=== PATIENT | female | born 1950 | race Caucasian/White ===

== ENCOUNTER 2021-08-06 15:40 | Inpatient (IN) | payer MEDICARE, MEDICAID ==
[~2021-08-06] VITALS: Ht 149.9 cm; Wt 72.3 kg
[2021-08-06 19:24] LABS: BASOPHILS % (AUTO) 0.4 % (0.0-2.0); EOSINOPHILS % (AUTO) 0.7 % (1.0-6.0); HEMATOCRIT 29.9 % (36-46); HEMOGLOBIN 9.6 g/dL (12.0-16.0); LYMPHOCYTES # (AUTO) 1.7 K/uL (1.0-4.8); MEAN CORPUSCULAR HEMOGLOBIN 26.5 pg (26.0-34.0); MEAN CORPUSCULAR HGB CONC 32.1 G/dL (31.0-37.0); MEAN CORPUSCULAR VOLUME 83 fL (80-100); MONOCYTES % (AUTO) 8.3 % (2.0-9.0); NEUTROPHILS # (AUTO) 9.4 K/uL (1.8-7.7); NEUTROPHILS % (AUTO) 76.6 % (40.0-70.0); PLATELET COUNT (AUTO) 294 K/uL (150-450); RED BLOOD CELL COUNT(AUTO) 3.63 MIL/uL (4.00-5.20); RED CELL DISTRIBUTION WIDTH 14.9 % (11.5-14.5)
[2021-08-06 19:38] LABS: ANION GAP 7 mmol/L (8-16); CALCIUM, TOTAL 9.1 mg/dL (8.8-10.5); CARBON DIOXIDE 30 mmol/L (22-29); CHLORIDE 100 mmol/L (98-107); CREATININE 1.94 mg/dL (0.60-1.30); GLOMERULAR FILTR. RATE CALC 25 mL/min (>60); GLUCOSE,RANDOM 122 mg/dL (70-110); SODIUM SERUM 137 mmol/L (136-145); UREA NITROGEN, BLOOD 26 mg/dL (7-18)
[2021-08-06 19:42] LABS: ALANINE AMINOTRANSFERASE 36 U/L (12-78); ALBUMIN 3.2 g/dL (3.4-5.0); ALKALINE PHOSPHATASE 92 U/L (46-116); ASPARTATE AMINOTRANSFERASE 50 U/L (15-37); BILIRUBIN,TOTAL 0.3 mg/dL (0.1-1.0); TOTAL PROTEIN, SERUM 7.9 g/dL (6.4-8.2)
[2021-08-06] MEDS ORDERED: ONDANSETRON HCL 4 MG/2 ML VIAL IVP PRN ×2 (20:45)
[2021-08-06] MEDS ORDERED: SODIUM CHLORIDE 0.9% 1,000 ML IV ONE (20:45)
[2021-08-06] MEDS ORDERED: LORazepam 2 MG/ML VIAL IM ONE (20:45)
[2021-08-06] MEDS ORDERED: 0.9% SODIUM CHLORIDE 10 ML SYRINGE IVP PRN (20:45)
[2021-08-06 21:27] LABS: COVID AG,FIA SOURCE NASOPHARYNGEAL
[2021-08-06 21:33] LABS: RETICULOCYTE % (AUTO) 0.9 % (0.5-2.3)
[2021-08-06 21:41] LABS: THYROID STIMULATING HORMONE 1.85 uIU/mL (0.36-3.74)
[2021-08-06 22:12] LABS: % IRON SATURATION 4.8 % (22-44); IRON, SERUM 14 mcg/dL (50-175); TOTAL IRON BINDING CAPACITY 289 mcg/dL (250-450)
[2021-08-06 22:40] LABS: APPEARANCE,URINE CLEAR (CLEAR); BILIRUBIN,URINE NEGATIVE (NEGATIVE); GLUCOSE, URINE (UA) NEGATIVE (NEGATIVE); KETONES,URINE NEGATIVE (NEGATIVE); LEUKOCYTE ESTERASE ,URINE NEGATIVE (NEGATIVE); NITRATE,URINE NEGATIVE (NEGATIVE); OCCULT BLOOD,URINE NEGATIVE (NEGATIVE); PH,URINE 5.5 (5.0-8.0); PROTEIN,URINE SEE CONFIRM (NEGATIVE); UROBILINOGEN,URINE 0.2 mg/dL (<=1.0)
[2021-08-06 22:58] LABS: AMPHET/METH SCREEN,URINE NEGATIVE (NEGATIVE); BARBITURATE SCREEN, URINE NEGATIVE (NEGATIVE); BENZODIAZEPINES SCREEN,URINE NEGATIVE (NEGATIVE); CANNABINOID SCREEN,URINE NEGATIVE (NEGATIVE); COCAINE SCREEN,URINE NEGATIVE (NEGATIVE); METHADONE SCREEN, URINE NEGATIVE (NEGATIVE); OPIATE SCREEN,URINE NEGATIVE (NEGATIVE); PHENCYCLIDINE SCREEN,URINE NEGATIVE (NEGATIVE)
[2021-08-06 23:06] LABS: AMORPHOUS SEDIMENT,UR Moderate /LPF (None Seen); BACTERIA,URINE Few /HPF (None Seen); RBC,URINE None Seen /HPF (0-2); WBC,URINE None Seen /HPF (0-5)
[2021-08-06 23:07] LABS: SULFOSALICYLIC ACID,URINE 1+ (Negative)
[2021-08-06 23:11] LABS: CREATININE,URINE RANDOM 102.8 mg/dL (30.0-125.0)
[2021-08-06 23:14] VITALS: BP 141/69
[2021-08-06] MEDS: SODIUM CHLORIDE 0.9% 1,000 ML IV SCH (23:17)
[2021-08-07 07:24] LABS: BASOPHILS % (AUTO) 0.8 % (0.0-2.0); EOSINOPHILS % (AUTO) 2.7 % (1.0-6.0); HEMATOCRIT 30.5 % (36-46); HEMOGLOBIN 9.9 g/dL (12.0-16.0); LYMPHOCYTES # (AUTO) 1.5 K/uL (1.0-4.8); LYMPHOCYTES % (AUTO) 16.3 % (22.0-44.0); MEAN CORPUSCULAR HEMOGLOBIN 27.1 pg (26.0-34.0); MEAN CORPUSCULAR HGB CONC 32.6 G/dL (31.0-37.0); MEAN CORPUSCULAR VOLUME 83 fL (80-100); MONOCYTES # (AUTO) 0.7 K/uL (0.1-1.0); MONOCYTES % (AUTO) 7.4 % (2.0-9.0); NEUTROPHILS # (AUTO) 6.8 K/uL (1.8-7.7); NEUTROPHILS % (AUTO) 72.8 % (40.0-70.0); PLATELET COUNT (AUTO) 257 K/uL (150-450); RED BLOOD CELL COUNT(AUTO) 3.66 MIL/uL (4.00-5.20); RED CELL DISTRIBUTION WIDTH 15.2 % (11.5-14.5)
[2021-08-07 07:36] LABS: CREATININE 1.3 mg/dL (0.60-1.30); POTASSIUM 3.9 mmol/L (3.5-5.1)
[2021-08-07] MEDS: SODIUM CHLORIDE 0.9% 1,000 ML IV SCH (08:03)
[2021-08-07 08:11] VITALS: BP 138/66
[2021-08-07] MEDS: LISINOPRIL 5 MG TABLET PO SCH (19:34)
[2021-08-07 20:30] VITALS: BP 163/73
[2021-08-07] MEDS: ACETAMINOPHEN 325 MG TABLET PO PRN (20:40)
[2021-08-08] MEDS ORDERED: MELATONIN 3 MG TABLET PO PRN (01:00)
[2021-08-08] MEDS: MELATONIN 3 MG TABLET PO PRN ×2 (01:24→23:33)
[2021-08-08 04:30] VITALS: BP 140/64
[2021-08-08 06:29] LABS: BASOPHILS % (AUTO) 0.5 % (0.0-2.0); EOSINOPHILS % (AUTO) 1.6 % (1.0-6.0); HEMATOCRIT 30.6 % (36-46); HEMOGLOBIN 9.8 g/dL (12.0-16.0); LYMPHOCYTES # (AUTO) 1.8 K/uL (1.0-4.8); LYMPHOCYTES % (AUTO) 14.5 % (22.0-44.0); MEAN CORPUSCULAR HEMOGLOBIN 26.6 pg (26.0-34.0); MEAN CORPUSCULAR VOLUME 83 fL (80-100); MONOCYTES # (AUTO) 0.8 K/uL (0.1-1.0); NEUTROPHILS # (AUTO) 9.8 K/uL (1.8-7.7); NEUTROPHILS % (AUTO) 77.4 % (40.0-70.0); PLATELET COUNT (AUTO) 275 K/uL (150-450); RED BLOOD CELL COUNT(AUTO) 3.68 MIL/uL (4.00-5.20); RED CELL DISTRIBUTION WIDTH 14.9 % (11.5-14.5)
[2021-08-08 06:40] LABS: % IRON SATURATION 6.4 % (22-44)
[2021-08-08 07:07] LABS: ALBUMIN 2.7 g/dL (3.4-5.0); BILIRUBIN,TOTAL 0.3 mg/dL (0.1-1.0); CALCIUM, TOTAL 8.8 mg/dL (8.8-10.5); CREATININE 1.08 mg/dL (0.60-1.30); POTASSIUM 4.4 mmol/L (3.5-5.1); TOTAL PROTEIN, SERUM 7.3 g/dL (6.4-8.2)
[2021-08-08 07:25] VITALS: BP 142/68
[2021-08-08] MEDS: MULTIVITAMINS WITH MINERALS, THERAPEUTIC TABLET PO SCH (08:25)
[2021-08-08] MEDS: LISINOPRIL 5 MG TABLET PO SCH (08:25)
[2021-08-08] MEDS: SOD FERRIC GLUC COMPLX/SUCROSE 125 MG in SODIUM CHLORIDE 0.9% 100 ML IV SCH (09:45)
[2021-08-08] MEDS: ACETAMINOPHEN 325 MG TABLET PO PRN (14:33)
[2021-08-08 15:13] VITALS: BP 138/70
[2021-08-08 19:30] VITALS: BP 142/60
[2021-08-09] MEDS: ACETAMINOPHEN 325 MG TABLET PO PRN ×2 (02:19→10:14)
[2021-08-09 04:35] VITALS: BP 137/60
[2021-08-09 06:34] LABS: BASOPHILS % (AUTO) 0.8 % (0.0-2.0); EOSINOPHILS % (AUTO) 3.2 % (1.0-6.0); HEMATOCRIT 28.8 % (36-46); HEMOGLOBIN 9.5 g/dL (12.0-16.0); LYMPHOCYTES # (AUTO) 1.6 K/uL (1.0-4.8); LYMPHOCYTES % (AUTO) 14.7 % (22.0-44.0); MEAN CORPUSCULAR HEMOGLOBIN 27.5 pg (26.0-34.0); MEAN CORPUSCULAR HGB CONC 33.2 G/dL (31.0-37.0); MEAN CORPUSCULAR VOLUME 83 fL (80-100); MONOCYTES # (AUTO) 0.6 K/uL (0.1-1.0); MONOCYTES % (AUTO) 5.8 % (2.0-9.0); NEUTROPHILS % (AUTO) 75.5 % (40.0-70.0); PLATELET COUNT (AUTO) 272 K/uL (150-450); RED BLOOD CELL COUNT(AUTO) 3.46 MIL/uL (4.00-5.20)
[2021-08-09 07:08] LABS: ALBUMIN 2.5 g/dL (3.4-5.0); BILIRUBIN,TOTAL 0.2 mg/dL (0.1-1.0); CALCIUM, TOTAL 8.7 mg/dL (8.8-10.5); CREATININE 1.25 mg/dL (0.60-1.30); MAGNESIUM 1.6 mg/dL (1.80-2.40); PHOSPHORUS 3.3 mg/dL (2.5-4.9); POTASSIUM 3.9 mmol/L (3.5-5.1)
[2021-08-09 08:31] VITALS: BP 152/76
[2021-08-09] MEDS: MULTIVITAMINS WITH MINERALS, THERAPEUTIC TABLET PO SCH (08:57)
[2021-08-09] MEDS: SOD FERRIC GLUC COMPLX/SUCROSE 125 MG in SODIUM CHLORIDE 0.9% 100 ML IV SCH (08:57)
[2021-08-09] MEDS: LISINOPRIL 5 MG TABLET PO SCH (08:58)
[2021-08-09] MEDS ORDERED: MAGNESIUM OXIDE 400 MG TABLET PO ONE (11:00)
[2021-08-09 15:10] VITALS: BP 119/77
== END 2021-08-09 18:00 | DRG 682 ==
LOC: EMS 15:40 → 6N 21:27
PROVIDERS: ADMIT Internal Medicine; ATTEND Internal Medicine
DX: N17.9 Acute kidney failure, unspecified (principal); G93.41 Metabolic encephalopathy; E44.0 Moderate protein-calorie malnutrition; R65.10 Systemic inflammatory response syndrome (SIRS) of non-infectious origin without acute organ dysfunction; N31.9 Neuromuscular dysfunction of bladder, unspecified; R33.9 Retention of urine, unspecified; J45.909 Unspecified asthma, uncomplicated; Z20.822 Contact with and (suspected) exposure to COVID-19; D63.1 Anemia in chronic kidney disease; E11.22 Type 2 diabetes mellitus with diabetic chronic kidney disease; I12.9 Hypertensive chronic kidney disease with stage 1 through stage 4 chronic kidney disease, or unspecified chronic kidney disease; N18.9 Chronic kidney disease, unspecified; R31.29 Other microscopic hematuria; R62.7 Adult failure to thrive; J42 Unspecified chronic bronchitis; F17.210 Nicotine dependence, cigarettes, uncomplicated; R74.8 Abnormal levels of other serum enzymes; R80.9 Proteinuria, unspecified; Z79.899 Other long term (current) drug therapy; Z88.5 Allergy status to narcotic agent; Z68.32 Body mass index [BMI] 32.0-32.9, adult; Z72.89 Other problems related to lifestyle; Z79.84 Long term (current) use of oral hypoglycemic drugs; Z90.49 Acquired absence of other specified parts of digestive tract
CPT/HCPCS: 51701; 70450; 71045; 76770; 80048; 80053; 81001; 81002; 82140; 82570; 82728; 83540; 83550; 83735; 84100; 84145; 84300; 84443; 84484; 85025; 85045; 87040; 93005; 97162; 99285; G0480; J2060; J2916; J7030; J7050; 36415-L1; 36415-TC

== ENCOUNTER 2021-08-17 11:52 | Emergency (ER) | payer MEDICARE, MEDICAID ==
[~2021-08-17] VITALS: Ht 157.5 cm; Wt 60.0 kg
[2021-08-17] MEDS ORDERED: QUET25TA PO (13:01)
[2021-08-17] MEDS ORDERED: LISI-892 PO (13:01)
[2021-08-17 13:31] LABS: BASOPHILS % (AUTO) 0.5 % (0.0-2.0); EOSINOPHILS % (AUTO) 1.4 % (1.0-6.0); HEMATOCRIT 28.8 % (36-46); HEMOGLOBIN 9.2 g/dL (12.0-16.0); LYMPHOCYTES % (AUTO) 18.7 % (22.0-44.0); MEAN CORPUSCULAR HEMOGLOBIN 26.7 pg (26.0-34.0); MEAN CORPUSCULAR VOLUME 83 fL (80-100); MONOCYTES # (AUTO) 0.5 K/uL (0.1-1.0); MONOCYTES % (AUTO) 4.6 % (2.0-9.0); NEUTROPHILS # (AUTO) 7.9 K/uL (1.8-7.7); NEUTROPHILS % (AUTO) 74.8 % (40.0-70.0); PLATELET COUNT (AUTO) 321 K/uL (150-450); RED BLOOD CELL COUNT(AUTO) 3.46 MIL/uL (4.00-5.20)
[2021-08-17 13:45] LABS: APPEARANCE,URINE CLOUDY (CLEAR); BILIRUBIN,URINE NEGATIVE (NEGATIVE); GLUCOSE, URINE (UA) NEGATIVE (NEGATIVE); KETONES,URINE NEGATIVE (NEGATIVE); LEUKOCYTE ESTERASE ,URINE SMALL (NEGATIVE); NITRATE,URINE NEGATIVE (NEGATIVE); OCCULT BLOOD,URINE LARGE (NEGATIVE); PH,URINE 5.5 (5.0-8.0); PROTEIN,URINE SEE CONFIRM (NEGATIVE)
[2021-08-17 13:46] LABS: AMPHET/METH SCREEN,URINE NEGATIVE (NEGATIVE); BARBITURATE SCREEN, URINE NEGATIVE (NEGATIVE); BENZODIAZEPINES SCREEN,URINE NEGATIVE (NEGATIVE); CANNABINOID SCREEN,URINE NEGATIVE (NEGATIVE); COCAINE SCREEN,URINE NEGATIVE (NEGATIVE); METHADONE SCREEN, URINE NEGATIVE (NEGATIVE); OPIATE SCREEN,URINE NEGATIVE (NEGATIVE)
[2021-08-17 13:46] LABS: CALCIUM, TOTAL 9.1 mg/dL (8.8-10.5); CREATININE 1.44 mg/dL (0.60-1.30); POTASSIUM 4.5 mmol/L (3.5-5.1)
[2021-08-17 13:47] LABS: PHENCYCLIDINE SCREEN,URINE NEGATIVE (NEGATIVE)
[2021-08-17 13:53] LABS: TROPONIN I 0.22 ng/mL (0.00-0.05)
[2021-08-17 14:00] LABS: AMMONIA < 10 umol/L (11-32)
[2021-08-17 14:12] LABS: ALBUMIN 2.8 g/dL (3.4-5.0); BILIRUBIN,TOTAL 0.2 mg/dL (0.1-1.0); TOTAL PROTEIN, SERUM 7.3 g/dL (6.4-8.2)
[2021-08-17] MEDS ORDERED: SODIUM CHLORIDE 0.9% 1,000 ML IV ONE (14:30)
[2021-08-17 14:51] LABS: RBC,URINE 26-50 /HPF (0-2); SULFOSALICYLIC ACID,URINE 3+ (Negative)
[2021-08-17 14:52] LABS: BACTERIA,URINE Many /HPF (None Seen)
[2021-08-17] MEDS ORDERED: CefTRIAXone 1 GM/DEXTROSE 50 ML IV ONE (15:00)
[2021-08-17 17:00] VITALS: BP 131/68
== END 2021-08-17 18:06 ==
LOC: EMS 11:56
DX: N39.0 Urinary tract infection, site not specified (principal); R77.8 Other specified abnormalities of plasma proteins; F69 Unspecified disorder of adult personality and behavior; J45.909 Unspecified asthma, uncomplicated; E11.9 Type 2 diabetes mellitus without complications; F17.210 Nicotine dependence, cigarettes, uncomplicated; Z88.5 Allergy status to narcotic agent
CPT/HCPCS: 36415; 70450; 71045; 80053; 80307; 81001; 82140; 82550; 84484; 85025; 87077; 87086; 87186; 93005; 96365; 99285; J0696; 81002

== ENCOUNTER 2021-10-22 17:04 | Emergency (ER) | payer MEDICARE, MEDICAID ==
[~2021-10-22] VITALS: Ht 157.5 cm; Wt 72.0 kg
[~2021-10-22 17:04] MED LIST: CIPR250T6 PO; LISI-892 PO; QUET25TA PO
[2021-10-22 20:00] LABS: BASOPHILS % (AUTO) 0.9 % (0.0-2.0); EOSINOPHILS % (AUTO) 7.5 % (1.0-6.0); HEMATOCRIT 30.5 % (36-46); HEMOGLOBIN 10.2 g/dL (12.0-16.0); LYMPHOCYTES # (AUTO) 2.1 K/uL (1.0-4.8); LYMPHOCYTES % (AUTO) 29.5 % (22.0-44.0); MEAN CORPUSCULAR HEMOGLOBIN 27.7 pg (26.0-34.0); MEAN CORPUSCULAR HGB CONC 33.5 G/dL (31.0-37.0); MEAN CORPUSCULAR VOLUME 83 fL (80-100); MONOCYTES # (AUTO) 0.5 K/uL (0.1-1.0); MONOCYTES % (AUTO) 7.3 % (2.0-9.0); NEUTROPHILS % (AUTO) 54.8 % (40.0-70.0); PLATELET COUNT (AUTO) 252 K/uL (150-450); RED BLOOD CELL COUNT(AUTO) 3.69 MIL/uL (4.00-5.20); RED CELL DISTRIBUTION WIDTH 16.4 % (11.5-14.5)
[2021-10-22] MEDS ORDERED: ACETAMINOPHEN 500 MG TABLET PO ONE (20:00)
[2021-10-22 20:13] LABS: CALCIUM, TOTAL 9.4 mg/dL (8.8-10.5); CREATININE 1.25 mg/dL (0.60-1.30); POTASSIUM 4.5 mmol/L (3.5-5.1)
[2021-10-22 22:32] VITALS: BP 139/68
== END 2021-10-22 22:33 | disposition home or self-care (01) ==
LOC: EMS 17:04
DX: M25.551 Pain in right hip (principal); I11.0 Hypertensive heart disease with heart failure; I50.9 Heart failure, unspecified; G93.40 Encephalopathy, unspecified; Z98.890 Other specified postprocedural states
CPT/HCPCS: 73502; 80048; 85025; 99284

== ENCOUNTER 2021-11-03 14:38 | Inpatient (IN) | payer MEDICARE, MEDICAID ==
[~2021-11-03] VITALS: Ht 157.5 cm; Wt 76.2 kg
[2021-11-03] MEDS ORDERED: LORazepam 1 MG TABLET PO PRN (16:45)
[2021-11-03] MEDS ORDERED: MAG HYDROX/AL HYDROX/SIMETH ES 30 ML SUSPENSION UDCUP PO PRN (16:45)
[2021-11-03] MEDS ORDERED: ZOLPIDEM TARTRATE 10 MG TABLET PO PRN (16:45)
[2021-11-03] MEDS ORDERED: MAGNESIUM HYDROXIDE SUSPENSION 30 ML UDCUP PO PRN (16:45)
[2021-11-03] MEDS ORDERED: HALOPERIDOL 5 MG TABLET PO PRN (16:45)
[2021-11-03] MEDS ORDERED: PROMETHAZINE HCL 25 MG TABLET PO PRN (16:45)
[2021-11-03] MEDS ORDERED: ACETAMINOPHEN 325 MG TABLET PO PRN (16:45)
[2021-11-03 16:52] VITALS: BP 131/77
[2021-11-03 17:26] LABS: GLUCOMETER DEV NAME(LOC) POC.BV
[2021-11-03] MEDS ORDERED: PARO-38 PO (17:26)
[2021-11-03] MEDS ORDERED: GLIM2 PO (17:26)
[2021-11-03] MEDS ORDERED: INSLAN SQ (17:26)
[2021-11-03] MEDS ORDERED: PANT-31 PO (17:26)
[2021-11-03] MEDS ORDERED: ATOR40TA28 PO (17:26)
[2021-11-03] MEDS ORDERED: GABA-1216 PO (17:26)
[2021-11-03] MEDS ORDERED: ALBU8.5H8 IH (17:26)
[2021-11-03] MEDS ORDERED: HYDR25TA2 PO (17:26)
[2021-11-03] MEDS ORDERED: ASPI-1444 PO (17:26)
[2021-11-03 18:38] VITALS: BP 151/77
[2021-11-03 18:41] LABS: GLUCOMETER DEV NAME(LOC) BV2S.; GLUCOSE,POINT OF CARE 187 MG/DL (70-110)
[2021-11-03] MEDS ORDERED: GLUCAGON,HUMAN RECOMBINANT 1 MG VIAL IM PRN (22:00)
[2021-11-04] MEDS: IBUPROFEN 400 MG TABLET PO SCH ×2 (00:16→08:10)
[2021-11-04 00:25] VITALS: BP 151/79
[2021-11-04 06:16] LABS: GLUCOMETER DEV NAME(LOC) BV2S.; GLUCOSE,POINT OF CARE 224 MG/DL (70-110)
[2021-11-04] MEDS: INSULIN LISPRO 100 UNITS/ML SQ PRN ×2 (06:52→16:36)
[2021-11-04] MEDS: MetFORMIN HCL 500 MG TABLET PO SCH ×2 (07:01→16:52)
[2021-11-04 07:11] LABS: BASOPHILS % (AUTO) 1.1 % (0.0-2.0); EOSINOPHILS % (AUTO) 12.1 % (1.0-6.0); HEMATOCRIT 30.3 % (36-46); HEMOGLOBIN 10.2 g/dL (12.0-16.0); LYMPHOCYTES # (AUTO) 2.2 K/uL (1.0-4.8); LYMPHOCYTES % (AUTO) 29.4 % (22.0-44.0); MEAN CORPUSCULAR HEMOGLOBIN 28.2 pg (26.0-34.0); MEAN CORPUSCULAR HGB CONC 33.6 G/dL (31.0-37.0); MEAN CORPUSCULAR VOLUME 84 fL (80-100); MONOCYTES # (AUTO) 0.5 K/uL (0.1-1.0); MONOCYTES % (AUTO) 6.6 % (2.0-9.0); NEUTROPHILS # (AUTO) 3.8 K/uL (1.8-7.7); NEUTROPHILS % (AUTO) 50.8 % (40.0-70.0); PLATELET COUNT (AUTO) 204 K/uL (150-450); RED BLOOD CELL COUNT(AUTO) 3.61 MIL/uL (4.00-5.20); RED CELL DISTRIBUTION WIDTH 15.9 % (11.5-14.5)
[2021-11-04 07:24] LABS: BILIRUBIN,TOTAL 0.2 mg/dL (0.1-1.0); CREATININE 1.26 mg/dL (0.60-1.30); POTASSIUM 4.4 mmol/L (3.5-5.1); TOTAL PROTEIN, SERUM 7.3 g/dL (6.4-8.2)
[2021-11-04 07:36] LABS: HEMOGLOBIN A1C 8.5 % (3.8-5.6)
[2021-11-04] MEDS: LISINOPRIL 5 MG TABLET PO SCH (08:10)
[2021-11-04] MEDS: FAMOTIDINE 20 MG TABLET PO SCH (08:10)
[2021-11-04 10:00] VITALS: BP 145/68
[2021-11-04 10:09] LABS: FREE T4 (FREE THYROXINE) 0.75 ng/dL (0.76-1.46); THYROID STIMULATING HORMONE 3.19 uIU/mL (0.36-3.74)
[2021-11-04] MEDS ORDERED: PETROLATUM,WHITE 28 GM JELLY TP PRN (10:45)
[2021-11-04] MEDS ORDERED: DOCUSATE SODIUM 100 MG CAPSULE PO PRN (10:45)
[2021-11-04] MEDS ORDERED: MAG HYDROX/AL HYDROX/SIMETH ES 30 ML SUSPENSION UDCUP PO PRN (10:45)
[2021-11-04] MEDS ORDERED: MAGNESIUM HYDROXIDE SUSPENSION 30 ML UDCUP PO PRN (10:45)
[2021-11-04] MEDS ORDERED: ALBUTEROL SULFATE HFA 90 MCG/PUFF 8 GM INHALER IH PRN ×2 (10:45)
[2021-11-04] MEDS ORDERED: ACETAMINOPHEN 325 MG TABLET PO PRN (10:45)
[2021-11-04] MEDS ORDERED: LOPERAMIDE HCL 2 MG CAPSULE PO PRN (10:45)
[2021-11-04] MEDS ORDERED: IBUPROFEN 400 MG TABLET PO PRN (10:45)
[2021-11-04] MEDS ORDERED: NICOTINE 14 MG/24 HOUR PATCH TD PRN (10:45)
[2021-11-04] MEDS ORDERED: GuaiFENesin/D-METHORPHAN [SUGAR-FREE] 200-20MG/10 ML SYRUP UDCUP PO PRN (10:45)
[2021-11-04] MEDS ORDERED: ONDANSETRON HCL 4 MG TABLET PO PRN (10:45)
[2021-11-04] MEDS ORDERED: CloNIDine HCL 0.1 MG TABLET PO PRN (10:45)
[2021-11-04] MEDS: PARoxetine HCL 20 MG TABLET PO SCH (11:18)
[2021-11-04] MEDS: QUEtiapine FUMARATE 25 MG TABLET PO SCH ×2 (11:18→16:52)
[2021-11-04 11:26] LABS: GLUCOMETER DEV NAME(LOC) BV2S.; GLUCOSE,POINT OF CARE 134 MG/DL (70-110)
[2021-11-04 16:01] VITALS: BP 135/65
[2021-11-04] MEDS: GLIMEPIRIDE 2 MG TABLET PO SCH (16:52)
[2021-11-04 17:02] LABS: GLUCOMETER DEV NAME(LOC) BV2S.; GLUCOSE,POINT OF CARE 149 MG/DL (70-110)
[2021-11-04] MEDS: ATORVASTATIN CALCIUM 40 MG TABLET PO SCH (20:20)
[2021-11-04] MEDS: INSULIN GLARGINE,HUM.REC.ANLOG 100 UNITS/ML SQ SCH (20:36)
[2021-11-04 21:16] LABS: GLUCOMETER DEV NAME(LOC) BV2S.; GLUCOSE,POINT OF CARE 105 MG/DL (70-110)
[2021-11-05 01:55] VITALS: BP 140/64
[2021-11-05] MEDS: GLIMEPIRIDE 2 MG TABLET PO SCH ×2 (06:46→16:39)
[2021-11-05] MEDS: PANTOPRAZOLE SODIUM 40 MG DR TABLET PO SCH (06:47)
[2021-11-05] MEDS: MetFORMIN HCL 500 MG TABLET PO SCH ×2 (06:47→16:40)
[2021-11-05 08:03] VITALS: BP 131/77
[2021-11-05] MEDS ORDERED: LISINOPRIL 5 MG TABLET PO SCH (09:00)
[2021-11-05] MEDS: ASPIRIN 81 MG DR TABLET PO SCH (09:34)
[2021-11-05] MEDS: LISINOPRIL 5 MG TABLET PO SCH (09:34)
[2021-11-05] MEDS: PARoxetine HCL 20 MG TABLET PO SCH (09:35)
[2021-11-05] MEDS: FAMOTIDINE 20 MG TABLET PO SCH (09:36)
[2021-11-05] MEDS: QUEtiapine FUMARATE 25 MG TABLET PO SCH ×2 (09:36→16:40)
[2021-11-05] MEDS: HYDROCHLOROTHIAZIDE 25 MG TABLET PO SCH (09:36)
[2021-11-05 16:01] VITALS: BP 116/61
[2021-11-05 16:21] LABS: GLUCOMETER DEV NAME(LOC) BV2S.; GLUCOSE,POINT OF CARE 137 MG/DL (70-110)
[2021-11-05] MEDS: ATORVASTATIN CALCIUM 40 MG TABLET PO SCH (20:32)
[2021-11-05 20:36] LABS: GLUCOMETER DEV NAME(LOC) BV2S.; GLUCOSE,POINT OF CARE 146 MG/DL (70-110)
[2021-11-05] MEDS: INSULIN GLARGINE,HUM.REC.ANLOG 100 UNITS/ML SQ SCH (20:50)
[2021-11-05] MEDS: INSULIN LISPRO 100 UNITS/ML SQ PRN (20:51)
[2021-11-06] VITALS: BP 124/73
[2021-11-06 06:16] LABS: GLUCOMETER DEV NAME(LOC) BV2S.; GLUCOSE,POINT OF CARE 71 MG/DL (70-110)
[2021-11-06] MEDS: MetFORMIN HCL 500 MG TABLET PO SCH ×2 (06:48→16:45)
[2021-11-06] MEDS: GLIMEPIRIDE 2 MG TABLET PO SCH ×2 (06:49→16:45)
[2021-11-06] MEDS: PANTOPRAZOLE SODIUM 40 MG DR TABLET PO SCH (06:49)
[2021-11-06 07:07] LABS: APPEARANCE,URINE CLOUDY (CLEAR); BILIRUBIN,URINE NEGATIVE (NEGATIVE); GLUCOSE, URINE (UA) NEGATIVE (NEGATIVE); KETONES,URINE NEGATIVE (NEGATIVE); LEUKOCYTE ESTERASE ,URINE LARGE (NEGATIVE); NITRATE,URINE NEGATIVE (NEGATIVE); OCCULT BLOOD,URINE TRACE (NEGATIVE); PH,URINE 6.5 (5.0-8.0); PROTEIN,URINE TRACE (NEGATIVE); UROBILINOGEN,URINE 0.2 mg/dL (<=1.0)
[2021-11-06 07:14] LABS: AMPHET/METH SCREEN,URINE NEGATIVE (NEGATIVE); BARBITURATE SCREEN, URINE NEGATIVE (NEGATIVE); BENZODIAZEPINES SCREEN,URINE NEGATIVE (NEGATIVE); CANNABINOID SCREEN,URINE NEGATIVE (NEGATIVE); COCAINE SCREEN,URINE NEGATIVE (NEGATIVE); METHADONE SCREEN, URINE NEGATIVE (NEGATIVE); OPIATE SCREEN,URINE NEGATIVE (NEGATIVE)
[2021-11-06 07:15] LABS: PHENCYCLIDINE SCREEN,URINE NEGATIVE (NEGATIVE)
[2021-11-06 07:20] LABS: BACTERIA,URINE Many /HPF (None Seen); RBC,URINE 0-2 /HPF (0-2); WBC,URINE 26-50 /HPF (0-5)
[2021-11-06 08:03] VITALS: BP 146/94
[2021-11-06] MEDS: LISINOPRIL 5 MG TABLET PO SCH (08:22)
[2021-11-06] MEDS: HYDROCHLOROTHIAZIDE 25 MG TABLET PO SCH (08:23)
[2021-11-06] MEDS: MULTIVITAMINS WITH MINERALS, THERAPEUTIC TABLET PO SCH (08:23)
[2021-11-06] MEDS: QUEtiapine FUMARATE 25 MG TABLET PO SCH ×2 (08:23→16:45)
[2021-11-06] MEDS: ASPIRIN 81 MG DR TABLET PO SCH (08:23)
[2021-11-06] MEDS: PARoxetine HCL 20 MG TABLET PO SCH (08:23)
[2021-11-06] MEDS: FAMOTIDINE 20 MG TABLET PO SCH (08:24)
[2021-11-06 11:26] LABS: GLUCOMETER DEV NAME(LOC) BV2S.; GLUCOSE,POINT OF CARE 99 MG/DL (70-110)
[2021-11-06 16:06] VITALS: BP 121/64
[2021-11-06 16:26] LABS: GLUCOMETER DEV NAME(LOC) BV2S.; GLUCOSE,POINT OF CARE 124 MG/DL (70-110)
[2021-11-06] MEDS: ATORVASTATIN CALCIUM 40 MG TABLET PO SCH (20:38)
[2021-11-06] MEDS: INSULIN GLARGINE,HUM.REC.ANLOG 100 UNITS/ML SQ SCH (20:59)
[2021-11-07 00:40] VITALS: BP 103/62
[2021-11-07 06:16] LABS: GLUCOMETER DEV NAME(LOC) BV2S.; GLUCOSE,POINT OF CARE 61 MG/DL (70-110)
[2021-11-07] MEDS: PANTOPRAZOLE SODIUM 40 MG DR TABLET PO SCH (06:43)
[2021-11-07] MEDS: GLIMEPIRIDE 2 MG TABLET PO SCH ×2 (06:49→16:42)
[2021-11-07] MEDS: MetFORMIN HCL 500 MG TABLET PO SCH ×2 (06:49→16:42)
[2021-11-07 08:13] VITALS: BP 145/66
[2021-11-07] MEDS: FAMOTIDINE 20 MG TABLET PO SCH (09:14)
[2021-11-07] MEDS: HYDROCHLOROTHIAZIDE 25 MG TABLET PO SCH (09:14)
[2021-11-07] MEDS: ASPIRIN 81 MG DR TABLET PO SCH (09:15)
[2021-11-07] MEDS: QUEtiapine FUMARATE 25 MG TABLET PO SCH ×2 (09:15→16:42)
[2021-11-07] MEDS: PARoxetine HCL 20 MG TABLET PO SCH (09:15)
[2021-11-07] MEDS: LISINOPRIL 5 MG TABLET PO SCH (09:15)
[2021-11-07] MEDS: MULTIVITAMINS WITH MINERALS, THERAPEUTIC TABLET PO SCH (09:15)
[2021-11-07 11:36] LABS: GLUCOMETER DEV NAME(LOC) BV2S.; GLUCOSE,POINT OF CARE 114 MG/DL (70-110)
[2021-11-07 16:04] VITALS: BP 138/69
[2021-11-07 16:32] LABS: GLUCOMETER DEV NAME(LOC) BV2S.; GLUCOSE,POINT OF CARE 127 MG/DL (70-110)
[2021-11-07] MEDS: ATORVASTATIN CALCIUM 40 MG TABLET PO SCH (20:33)
[2021-11-07 20:37] LABS: GLUCOMETER DEV NAME(LOC) BV2S.; GLUCOSE,POINT OF CARE 138 MG/DL (70-110)
[2021-11-07] MEDS: INSULIN GLARGINE,HUM.REC.ANLOG 100 UNITS/ML SQ SCH (21:00)
[2021-11-08 00:06] VITALS: BP 132/76
[2021-11-08 06:31] LABS: GLUCOMETER DEV NAME(LOC) BV2S.; GLUCOSE,POINT OF CARE 104 MG/DL (70-110)
[2021-11-08] MEDS: PANTOPRAZOLE SODIUM 40 MG DR TABLET PO SCH (06:47)
[2021-11-08] MEDS: MetFORMIN HCL 500 MG TABLET PO SCH (06:47)
[2021-11-08] MEDS: GLIMEPIRIDE 2 MG TABLET PO SCH (06:47)
[2021-11-08 07:29] LABS: COVID AG,FIA SOURCE NASOPHARYNGEAL
[2021-11-08 08:15] VITALS: BP 181/87
[2021-11-08] MEDS: PARoxetine HCL 20 MG TABLET PO SCH (08:50)
[2021-11-08] MEDS: LISINOPRIL 5 MG TABLET PO SCH (08:50)
[2021-11-08] MEDS: FAMOTIDINE 20 MG TABLET PO SCH (08:50)
[2021-11-08] MEDS: MULTIVITAMINS WITH MINERALS, THERAPEUTIC TABLET PO SCH (08:50)
[2021-11-08] MEDS: ASPIRIN 81 MG DR TABLET PO SCH (08:50)
[2021-11-08] MEDS: QUEtiapine FUMARATE 25 MG TABLET PO SCH (08:50)
[2021-11-08] MEDS: HYDROCHLOROTHIAZIDE 25 MG TABLET PO SCH (08:50)
== END 2021-11-08 15:35 | disposition home or self-care (01) | DRG 885 ==
LOC: B2S 16:46
PROVIDERS: ADMIT Psychiatry & Neurology Child & Adolescent Psychiatry; ATTEND Psychiatry & Neurology Child & Adolescent Psychiatry
DX: F33.3 Major depressive disorder, recurrent, severe with psychotic symptoms (principal); E78.5 Hyperlipidemia, unspecified; F41.9 Anxiety disorder, unspecified; I10 Essential (primary) hypertension; J45.909 Unspecified asthma, uncomplicated; K21.9 Gastro-esophageal reflux disease without esophagitis; D64.9 Anemia, unspecified; Z20.822 Contact with and (suspected) exposure to COVID-19; E11.9 Type 2 diabetes mellitus without complications; Z79.4 Long term (current) use of insulin; Z59.00 Homelessness unspecified
CPT/HCPCS: 80053; 80061; 80307; 81001; 82962; 83036; 84439; 84443; 85025; 87086; J1815

== ENCOUNTER 2022-10-05 09:48 | Emergency (ER) | payer MEDICARE, MEDICAID ==
[~2022-10-05] VITALS: Ht 157.5 cm; Wt 90.9 kg
[~2022-10-05 09:48] MED LIST changes: +ASPI-1444 PO; +ATOR40TA28 PO; -CIPR250T6 PO; +GABA-1216 PO; +GLIM2 PO; +HYDR25TA2 PO; +PANT-31 PO; +PARO-38 PO
[2022-10-05] MEDS ORDERED: ACETAMINOPHEN 500 MG TABLET PO ONE (16:15)
[2022-10-05] MEDS ORDERED: ALBU8HFA IH (16:54)
[2022-10-05] MEDS ORDERED: LIDO700A15 TP (16:54)
[2022-10-05] MEDS ORDERED: ACET-66 PO (16:54)
[2022-10-05 17:57] VITALS: BP 130/72
[2022-10-06 07:56] LABS: GLUCOMETER DEV NAME(LOC) ERT.5; GLUCOSE,POINT OF CARE 66 MG/DL (70-110)
== END 2022-10-05 18:00 | disposition home or self-care (01) ==
LOC: EMS 09:52
DX: M25.552 Pain in left hip (principal); E11.9 Type 2 diabetes mellitus without complications; I11.0 Hypertensive heart disease with heart failure; I50.9 Heart failure, unspecified; Z87.09 Personal history of other diseases of the respiratory system; Z90.89 Acquired absence of other organs; Z98.51 Tubal ligation status; Z88.6 Allergy status to analgesic agent
CPT/HCPCS: 73503; 82962; 99285

== ENCOUNTER 2022-10-17 08:59 | Inpatient (IN) | payer MEDICARE, MEDICAID ==
[~2022-10-17] VITALS: Ht 157.5 cm; Wt 75.1 kg
[~2022-10-17 08:59] MED LIST changes: +ACET-66 PO; +ALBU8HFA IH; +LIDO700A15 TP
[2022-10-17] MEDS ORDERED: ACETAMINOPHEN 500 MG TABLET PO ONE (09:30)
[2022-10-17 09:52] LABS: BASOPHILS % (AUTO) 0.6 % (0.0-2.0); EOSINOPHILS % (AUTO) 4.8 % (1.0-6.0); HEMATOCRIT 27.7 % (36-46); HEMOGLOBIN 9.2 g/dL (12.0-16.0); LYMPHOCYTES # (AUTO) 1.6 K/uL (1.0-4.8); LYMPHOCYTES % (AUTO) 22.2 % (22.0-44.0); MEAN CORPUSCULAR HEMOGLOBIN 29.4 pg (26.0-34.0); MEAN CORPUSCULAR HGB CONC 33.3 G/dL (31.0-37.0); MEAN CORPUSCULAR VOLUME 89 fL (80-100); MONOCYTES # (AUTO) 0.5 K/uL (0.1-1.0); MONOCYTES % (AUTO) 6.2 % (2.0-9.0); NEUTROPHILS # (AUTO) 4.8 K/uL (1.8-7.7); NEUTROPHILS % (AUTO) 66.2 % (40.0-70.0); PLATELET COUNT (AUTO) 220 K/uL (150-450); RED BLOOD CELL COUNT(AUTO) 3.12 MIL/uL (4.00-5.20)
[2022-10-17 10:04] LABS: CALCIUM, TOTAL 9.1 mg/dL (8.8-10.5); CREATININE 2.9 mg/dL (0.60-1.30); POTASSIUM 5.6 mmol/L (3.5-5.1)
[2022-10-17 10:10] LABS: ALBUMIN 3.3 g/dL (3.4-5.0); BILIRUBIN,TOTAL 0.2 mg/dL (0.1-1.0); TOTAL PROTEIN, SERUM 7.7 g/dL (6.4-8.2)
[2022-10-17 10:11] LABS: APPEARANCE,URINE HAZY (CLEAR); BILIRUBIN,URINE NEGATIVE (NEGATIVE); GLUCOSE, URINE (UA) NEGATIVE (NEGATIVE); KETONES,URINE NEGATIVE (NEGATIVE); LEUKOCYTE ESTERASE ,URINE LARGE (NEGATIVE); NITRATE,URINE NEGATIVE (NEGATIVE); OCCULT BLOOD,URINE NEGATIVE (NEGATIVE); PROTEIN,URINE TRACE mg/dL (NEGATIVE); SPECIFIC GRAVITIY, URINE 1.008 (1.003-1.030); UROBILINOGEN,URINE <=1.0 mg/dL (<=1.0)
[2022-10-17] MEDS ORDERED: SODIUM CHLORIDE 0.9% 1,000 ML IV ONE (10:15)
[2022-10-17 10:21] LABS: BACTERIA,URINE Many /HPF (None Seen); RBC,URINE None Seen /HPF (0-2); RENAL EPITHELIAL CELLS,URINE Few /LPF (None Seen); WBC,URINE 26-50 /HPF (0-5)
[2022-10-17] MEDS ORDERED: CefTRIAXone 1 GM/DEXTROSE 50 ML IV ONE (10:45)
[2022-10-17 11:11] LABS: COVID AG,FIA SOURCE NASOPHARYNGEAL
[2022-10-17] MEDS ORDERED: DOCUSATE SODIUM 100 MG CAPSULE PO ONE (12:15)
[2022-10-17] MEDS ORDERED: ACETAMINOPHEN 325 MG TABLET PO PRN (14:00)
[2022-10-17] MEDS ORDERED: ONDANSETRON HCL 4 MG/2 ML VIAL IVP PRN (14:00)
[2022-10-17] MEDS ORDERED: 0.9% SODIUM CHLORIDE 10 ML SYRINGE IVP PRN (14:00)
[2022-10-17 16:51] LABS: GLUCOMETER DEV NAME(LOC) ERT.5; GLUCOSE,POINT OF CARE 118 MG/DL (70-110)
[2022-10-17] MEDS ORDERED: DEXTROSE 50%-WATER 25 GM/50 ML SYRINGE IVP PRN (18:30)
[2022-10-17] MEDS ORDERED: ALBUTEROL SULFATE HFA 90 MCG/PUFF 8 GM INHALER IH PRN (18:30)
[2022-10-17] MEDS ORDERED: ALBUTEROL SULFATE 2.5 MG/0.5 ML NEB SOLUTION NEB PRN (18:30)
[2022-10-17] MEDS ORDERED: BISACODYL 10 MG RECTAL RECTAL SUPPOSITORY PR PRN (18:30)
[2022-10-17] MEDS ORDERED: IPRATROPIUM BROMIDE 0.5 MG/2.5 ML NEB SOLUTION NEB PRN (18:30)
[2022-10-17] MEDS ORDERED: SODIUM POLYSTYRENE SULFONATE 15 GM/60 ML SUSPENSION BOTTLE PO ONE (18:45)
[2022-10-17] MEDS: GABAPENTIN 100 MG CAPSULE PO SCH (19:49)
[2022-10-17] MEDS: ATORVASTATIN CALCIUM 40 MG TABLET PO SCH (19:49)
[2022-10-17] MEDS: SODIUM CHLORIDE 0.9% 1,000 ML IV SCH (19:50)
[2022-10-17] MEDS: DOCUSATE SODIUM 100 MG CAPSULE PO SCH (19:50)
[2022-10-17] MEDS: LEVOFLOXACIN 500 MG/D5% WATER 100 ML IV SCH (20:21)
[2022-10-17] MEDS: ACETAMINOPHEN 325 MG TABLET PO PRN (21:40)
[2022-10-17 22:00] VITALS: BP 156/68
[2022-10-17] MEDS: QUEtiapine FUMARATE 25 MG TABLET PO SCH (23:16)
[2022-10-18] MEDS: HEPARIN SODIUM,PORCINE 5,000 UNITS/ML VIAL SQ SCH ×3 (00:27→17:45)
[2022-10-18 05:21] VITALS: BP 138/61
[2022-10-18] MEDS ORDERED: INSULIN LISPRO 100 UNITS/ML SQ PRN (07:00)
[2022-10-18 07:35] VITALS: BP 133/98
[2022-10-18] MEDS: DOCUSATE SODIUM 100 MG CAPSULE PO SCH ×2 (09:00→20:24)
[2022-10-18] MEDS ORDERED: PARoxetine HCL 20 MG TABLET PO SCH (09:00)
[2022-10-18] MEDS: QUEtiapine FUMARATE 25 MG TABLET PO SCH ×2 (09:35→20:24)
[2022-10-18] MEDS: PARoxetine HCL 20 MG TABLET PO SCH (09:35)
[2022-10-18] MEDS: ASPIRIN 81 MG DR TABLET PO SCH (09:35)
[2022-10-18] MEDS: GABAPENTIN 100 MG CAPSULE PO SCH ×3 (09:35→20:23)
[2022-10-18] MEDS: PANTOPRAZOLE SODIUM 40 MG/VIAL IVP SCH (09:36)
[2022-10-18 10:09] LABS: BASOPHILS % (AUTO) 0.9 % (0.0-2.0); EOSINOPHILS % (AUTO) 4.5 % (1.0-6.0); HEMATOCRIT 26.6 % (36-46); HEMOGLOBIN 8.9 g/dL (12.0-16.0); LYMPHOCYTES % (AUTO) 17.5 % (22.0-44.0); MEAN CORPUSCULAR HEMOGLOBIN 29.6 pg (26.0-34.0); MEAN CORPUSCULAR HGB CONC 33.4 G/dL (31.0-37.0); MEAN CORPUSCULAR VOLUME 89 fL (80-100); MONOCYTES # (AUTO) 0.4 K/uL (0.1-1.0); MONOCYTES % (AUTO) 7.2 % (2.0-9.0); NEUTROPHILS # (AUTO) 4.2 K/uL (1.8-7.7); NEUTROPHILS % (AUTO) 69.9 % (40.0-70.0); PLATELET COUNT (AUTO) 211 K/uL (150-450); RED CELL DISTRIBUTION WIDTH 13.9 % (11.5-14.5)
[2022-10-18 10:18] LABS: CALCIUM, TOTAL 9.1 mg/dL (8.8-10.5); CREATININE 2.59 mg/dL (0.60-1.30); POTASSIUM 4.9 mmol/L (3.5-5.1)
[2022-10-18 10:23] LABS: BILIRUBIN,TOTAL 0.2 mg/dL (0.1-1.0); PHOSPHORUS 3.9 mg/dL (2.5-4.9); TOTAL PROTEIN, SERUM 7.3 g/dL (6.4-8.2)
[2022-10-18 11:24] VITALS: BP 135/54
[2022-10-18] MEDS ORDERED: GLUCAGON,HUMAN RECOMBINANT 1 MG VIAL IM SCH (11:30)
[2022-10-18] MEDS ORDERED: GLUCAGON,HUMAN RECOMBINANT 1 MG VIAL IM PRN (11:30)
[2022-10-18] MEDS: SODIUM CHLORIDE 0.9% 1,000 ML IV SCH (14:53)
[2022-10-18 15:21] VITALS: BP 142/70
[2022-10-18] MEDS ORDERED: AMLO5TAB66 PO (19:29)
[2022-10-18] MEDS ORDERED: DULA0.75 SQ (19:29)
[2022-10-18] MEDS: LEVOFLOXACIN 500 MG/D5% WATER 100 ML IV SCH (19:33)
[2022-10-18 19:50] VITALS: BP 125/54
[2022-10-18] MEDS: SODIUM CHLORIDE 0.45% 1,000 ML IV SCH (20:23)
[2022-10-18] MEDS: ATORVASTATIN CALCIUM 40 MG TABLET PO SCH (20:24)
[2022-10-18 21:16] LABS: GLUCOMETER DEV NAME(LOC) 5S.1B; GLUCOSE,POINT OF CARE 105 MG/DL (70-110)
[2022-10-18 21:17] LABS: GLUCOMETER DEV NAME(LOC) 5S.1B; GLUCOSE,POINT OF CARE 156 MG/DL (70-110)
[2022-10-18 21:17] LABS: GLUCOMETER DEV NAME(LOC) 5S.1B; GLUCOSE,POINT OF CARE 90 MG/DL (70-110)
[2022-10-18 22:41] VITALS: BP 143/65
[2022-10-19] MEDS: HEPARIN SODIUM,PORCINE 5,000 UNITS/ML VIAL SQ SCH ×4 (00:31→23:49)
[2022-10-19] MEDS: ACETAMINOPHEN 325 MG TABLET PO PRN ×2 (04:07→17:19)
[2022-10-19 04:55] VITALS: BP_SYST 109; BP_SYST 138; BP_DIAS 61; BP_DIAS 73
[2022-10-19 06:44] LABS: BASOPHILS % (AUTO) 0.7 % (0.0-2.0); EOSINOPHILS % (AUTO) 1.3 % (1.0-6.0); HEMATOCRIT 25.1 % (36-46); HEMOGLOBIN 8.5 g/dL (12.0-16.0); LYMPHOCYTES # (AUTO) 0.8 K/uL (1.0-4.8); LYMPHOCYTES % (AUTO) 19.2 % (22.0-44.0); MEAN CORPUSCULAR HEMOGLOBIN 29.8 pg (26.0-34.0); MEAN CORPUSCULAR HGB CONC 33.9 G/dL (31.0-37.0); MEAN CORPUSCULAR VOLUME 88 fL (80-100); MONOCYTES # (AUTO) 0.5 K/uL (0.1-1.0); MONOCYTES % (AUTO) 12.4 % (2.0-9.0); NEUTROPHILS # (AUTO) 2.8 K/uL (1.8-7.7); NEUTROPHILS % (AUTO) 66.4 % (40.0-70.0); PLATELET COUNT (AUTO) 185 K/uL (150-450); RED BLOOD CELL COUNT(AUTO) 2.85 MIL/uL (4.00-5.20); RED CELL DISTRIBUTION WIDTH 13.6 % (11.5-14.5)
[2022-10-19 07:13] LABS: ALBUMIN 2.9 g/dL (3.4-5.0); BILIRUBIN,TOTAL 0.2 mg/dL (0.1-1.0); CALCIUM, TOTAL 9.1 mg/dL (8.8-10.5); CREATININE 2.14 mg/dL (0.60-1.30); MAGNESIUM 1.7 mg/dL (1.80-2.40); POTASSIUM 4.2 mmol/L (3.5-5.1)
[2022-10-19 07:41] LABS: GLUCOMETER DEV NAME(LOC) 6N.1; GLUCOSE,POINT OF CARE 120 MG/DL (70-110)
[2022-10-19 07:56] VITALS: BP 136/86
[2022-10-19] MEDS: PANTOPRAZOLE SODIUM 40 MG/VIAL IVP SCH (08:56)
[2022-10-19] MEDS: DOCUSATE SODIUM 100 MG CAPSULE PO SCH ×2 (08:56→20:48)
[2022-10-19] MEDS: ASPIRIN 81 MG DR TABLET PO SCH (08:57)
[2022-10-19] MEDS ORDERED: LACTULOSE 20 GM/30 ML SOLUTION UDCUP PO ONE (10:15)
[2022-10-19] MEDS ORDERED: MAGNESIUM SULFATE 2 GM/WATER 50 ML IV ONE (10:30)
[2022-10-19] MEDS: GABAPENTIN 100 MG CAPSULE PO SCH ×3 (10:37→20:48)
[2022-10-19] MEDS: PARoxetine HCL 20 MG TABLET PO SCH (10:37)
[2022-10-19] MEDS: SODIUM CHLORIDE 0.45% 1,000 ML IV SCH (10:37)
[2022-10-19] MEDS: QUEtiapine FUMARATE 25 MG TABLET PO SCH ×2 (10:37→20:47)
[2022-10-19 16:08] VITALS: BP 141/68
[2022-10-19 16:21] LABS: GLUCOMETER DEV NAME(LOC) 6N.2B; GLUCOSE,POINT OF CARE 93 MG/DL (70-110)
[2022-10-19] MEDS: LEVOFLOXACIN 500 MG/D5% WATER 100 ML IV SCH (17:19)
[2022-10-19 18:11] LABS: GLUCOMETER DEV NAME(LOC) 6N.2B; GLUCOSE,POINT OF CARE 101 MG/DL (70-110)
[2022-10-19 19:25] VITALS: BP 143/74
[2022-10-19] MEDS: ATORVASTATIN CALCIUM 40 MG TABLET PO SCH (20:48)
[2022-10-20] MEDS: SODIUM CHLORIDE 0.45% 1,000 ML IV SCH ×2 (03:35→15:56)
[2022-10-20 04:18] VITALS: BP 140/67
[2022-10-20 05:15] LABS: GLUCOMETER DEV NAME(LOC) 6N.2B; GLUCOSE,POINT OF CARE 131 MG/DL (70-110)
[2022-10-20 06:46] LABS: BASOPHILS % (AUTO) 0.8 % (0.0-2.0); EOSINOPHILS % (AUTO) 2.1 % (1.0-6.0); HEMATOCRIT 26.8 % (36-46); HEMOGLOBIN 8.9 g/dL (12.0-16.0); LYMPHOCYTES # (AUTO) 1.1 K/uL (1.0-4.8); LYMPHOCYTES % (AUTO) 27.8 % (22.0-44.0); MEAN CORPUSCULAR HGB CONC 33.1 G/dL (31.0-37.0); MEAN CORPUSCULAR VOLUME 88 fL (80-100); MONOCYTES # (AUTO) 0.6 K/uL (0.1-1.0); MONOCYTES % (AUTO) 14.7 % (2.0-9.0); NEUTROPHILS # (AUTO) 2.2 K/uL (1.8-7.7); NEUTROPHILS % (AUTO) 54.6 % (40.0-70.0); PLATELET COUNT (AUTO) 204 K/uL (150-450); RED BLOOD CELL COUNT(AUTO) 3.06 MIL/uL (4.00-5.20); RED CELL DISTRIBUTION WIDTH 13.7 % (11.5-14.5)
[2022-10-20 07:01] LABS: GLUCOMETER DEV NAME(LOC) 6N.1; GLUCOSE,POINT OF CARE 81 MG/DL (70-110)
[2022-10-20 07:04] LABS: BILIRUBIN,TOTAL 0.2 mg/dL (0.1-1.0); CALCIUM, TOTAL 9.3 mg/dL (8.8-10.5); CREATININE 1.86 mg/dL (0.60-1.30); POTASSIUM 4.4 mmol/L (3.5-5.1); TOTAL PROTEIN, SERUM 7.2 g/dL (6.4-8.2)
[2022-10-20 07:49] VITALS: BP 129/72
[2022-10-20] MEDS: PANTOPRAZOLE SODIUM 40 MG/VIAL IVP SCH (09:00)
[2022-10-20 09:17] VITALS: BP 145/75
[2022-10-20] MEDS: HEPARIN SODIUM,PORCINE 5,000 UNITS/ML VIAL SQ SCH ×3 (09:31→23:13)
[2022-10-20] MEDS: DOCUSATE SODIUM 100 MG CAPSULE PO SCH ×2 (09:32→22:06)
[2022-10-20] MEDS: ASPIRIN 81 MG DR TABLET PO SCH (09:33)
[2022-10-20] MEDS: PARoxetine HCL 20 MG TABLET PO SCH (09:34)
[2022-10-20] MEDS: GABAPENTIN 100 MG CAPSULE PO SCH ×3 (09:34→22:07)
[2022-10-20] MEDS: QUEtiapine FUMARATE 25 MG TABLET PO SCH ×2 (09:35→21:00)
[2022-10-20] MEDS: ACETAMINOPHEN 325 MG TABLET PO PRN (10:04)
[2022-10-20 11:50] VITALS: BP 109/55
[2022-10-20 12:01] LABS: GLUCOMETER DEV NAME(LOC) 6N.1; GLUCOSE,POINT OF CARE 104 MG/DL (70-110)
[2022-10-20 15:01] VITALS: BP 126/56
[2022-10-20] MEDS: MAGNESIUM HYDROXIDE SUSPENSION 30 ML UDCUP PO PRN (15:58)
[2022-10-20] MEDS: LEVOFLOXACIN 500 MG/D5% WATER 100 ML IV SCH (16:59)
[2022-10-20 17:31] LABS: GLUCOMETER DEV NAME(LOC) 6N.2B; GLUCOSE,POINT OF CARE 85 MG/DL (70-110)
[2022-10-20] MEDS ORDERED: DEXTROSE 50%-WATER 25 GM/50 ML SYRINGE IVP PRN (18:00)
[2022-10-20] MEDS: ATORVASTATIN CALCIUM 40 MG TABLET PO SCH (22:07)
[2022-10-20 22:55] VITALS: BP 149/66
[2022-10-21 02:46] LABS: GLUCOMETER DEV NAME(LOC) 6N.2B; GLUCOSE,POINT OF CARE 78 MG/DL (70-110)
[2022-10-21 04:53] VITALS: BP 159/72
[2022-10-21 06:21] LABS: BASOPHILS % (AUTO) 0.7 % (0.0-2.0); EOSINOPHILS % (AUTO) 3.2 % (1.0-6.0); HEMATOCRIT 29.3 % (36-46); LYMPHOCYTES # (AUTO) 1.2 K/uL (1.0-4.8); LYMPHOCYTES % (AUTO) 28.4 % (22.0-44.0); MEAN CORPUSCULAR HEMOGLOBIN 29.5 pg (26.0-34.0); MEAN CORPUSCULAR VOLUME 87 fL (80-100); MONOCYTES # (AUTO) 0.5 K/uL (0.1-1.0); MONOCYTES % (AUTO) 12.2 % (2.0-9.0); NEUTROPHILS # (AUTO) 2.4 K/uL (1.8-7.7); NEUTROPHILS % (AUTO) 55.5 % (40.0-70.0); PLATELET COUNT (AUTO) 222 K/uL (150-450); RED BLOOD CELL COUNT(AUTO) 3.38 MIL/uL (4.00-5.20); RED CELL DISTRIBUTION WIDTH 13.8 % (11.5-14.5)
[2022-10-21 06:41] LABS: ALBUMIN 3.1 g/dL (3.4-5.0); BILIRUBIN,TOTAL 0.3 mg/dL (0.1-1.0); CALCIUM, TOTAL 9.5 mg/dL (8.8-10.5); CREATININE 1.89 mg/dL (0.60-1.30); POTASSIUM 4.6 mmol/L (3.5-5.1); TOTAL PROTEIN, SERUM 7.6 g/dL (6.4-8.2)
[2022-10-21 07:25] VITALS: BP 140/61
[2022-10-21] MEDS: DOCUSATE SODIUM 100 MG CAPSULE PO SCH ×2 (09:00→19:55)
[2022-10-21] MEDS: HEPARIN SODIUM,PORCINE 5,000 UNITS/ML VIAL SQ SCH ×2 (10:21→17:00)
[2022-10-21] MEDS: GABAPENTIN 100 MG CAPSULE PO SCH ×3 (10:22→21:08)
[2022-10-21] MEDS: PANTOPRAZOLE SODIUM 40 MG/VIAL IVP SCH (10:22)
[2022-10-21] MEDS: QUEtiapine FUMARATE 25 MG TABLET PO SCH ×2 (10:22→19:55)
[2022-10-21] MEDS: PARoxetine HCL 20 MG TABLET PO SCH (10:23)
[2022-10-21] MEDS: ACETAMINOPHEN 325 MG TABLET PO PRN ×2 (10:23→17:01)
[2022-10-21] MEDS: ASPIRIN 81 MG DR TABLET PO SCH (10:23)
[2022-10-21 12:26] LABS: GLUCOMETER DEV NAME(LOC) 6N.2B; GLUCOSE,POINT OF CARE 81 MG/DL (70-110)
[2022-10-21 15:32] VITALS: BP 117/62
[2022-10-21] MEDS: LEVOFLOXACIN 500 MG/D5% WATER 100 ML IV SCH (18:21)
[2022-10-21 19:30] VITALS: BP 120/67
[2022-10-21] MEDS: ATORVASTATIN CALCIUM 40 MG TABLET PO SCH (19:55)
[2022-10-22 00:41] LABS: GLUCOMETER DEV NAME(LOC) 6N.1; GLUCOSE,POINT OF CARE 110 MG/DL (70-110)
[2022-10-22] MEDS: HEPARIN SODIUM,PORCINE 5,000 UNITS/ML VIAL SQ SCH ×4 (00:43→23:55)
[2022-10-22] MEDS: ACETAMINOPHEN 325 MG TABLET PO PRN ×4 (01:44→23:54)
[2022-10-22] MEDS: ZOLPIDEM TARTRATE 5 MG TABLET PO PRN ×2 (01:46→23:55)
[2022-10-22 04:38] VITALS: BP 125/64
[2022-10-22 06:43] LABS: BASOPHILS % (AUTO) 1.2 % (0.0-2.0); EOSINOPHILS % (AUTO) 4.2 % (1.0-6.0); HEMATOCRIT 28.3 % (36-46); HEMOGLOBIN 9.6 g/dL (12.0-16.0); LYMPHOCYTES # (AUTO) 1.7 K/uL (1.0-4.8); LYMPHOCYTES % (AUTO) 37.3 % (22.0-44.0); MEAN CORPUSCULAR HEMOGLOBIN 29.6 pg (26.0-34.0); MEAN CORPUSCULAR HGB CONC 33.8 G/dL (31.0-37.0); MEAN CORPUSCULAR VOLUME 88 fL (80-100); MONOCYTES # (AUTO) 0.5 K/uL (0.1-1.0); NEUTROPHILS # (AUTO) 2.1 K/uL (1.8-7.7); NEUTROPHILS % (AUTO) 45.3 % (40.0-70.0); PLATELET COUNT (AUTO) 215 K/uL (150-450); RED BLOOD CELL COUNT(AUTO) 3.23 MIL/uL (4.00-5.20); RED CELL DISTRIBUTION WIDTH 13.5 % (11.5-14.5)
[2022-10-22 07:00] LABS: ALBUMIN 3.1 g/dL (3.4-5.0); BILIRUBIN,TOTAL 0.2 mg/dL (0.1-1.0); CREATININE 2.44 mg/dL (0.60-1.30); POTASSIUM 4.9 mmol/L (3.5-5.1); TOTAL PROTEIN, SERUM 7.4 g/dL (6.4-8.2)
[2022-10-22] MEDS: GABAPENTIN 100 MG CAPSULE PO SCH ×3 (08:05→20:37)
[2022-10-22] MEDS: PANTOPRAZOLE SODIUM 40 MG/VIAL IVP SCH (08:05)
[2022-10-22] MEDS: QUEtiapine FUMARATE 25 MG TABLET PO SCH ×2 (08:06→20:37)
[2022-10-22] MEDS: ASPIRIN 81 MG DR TABLET PO SCH (08:06)
[2022-10-22] MEDS: DOCUSATE SODIUM 100 MG CAPSULE PO SCH ×2 (08:06→20:37)
[2022-10-22] MEDS: PARoxetine HCL 20 MG TABLET PO SCH (08:06)
[2022-10-22 09:26] VITALS: BP 111/65
[2022-10-22 13:36] LABS: GLUCOMETER DEV NAME(LOC) 6N.2B; GLUCOSE,POINT OF CARE 76 MG/DL (70-110)
[2022-10-22 13:37] LABS: GLUCOMETER DEV NAME(LOC) 6N.2B; GLUCOSE,POINT OF CARE 83 MG/DL (70-110)
[2022-10-22 15:47] VITALS: BP 143/80
[2022-10-22 18:14] LABS: COVID AG,FIA SOURCE NASAL SWAB
[2022-10-22] MEDS: LEVOFLOXACIN 500 MG/D5% WATER 100 ML IV SCH (18:26)
[2022-10-22] MEDS ORDERED: SODIUM CHLORIDE 0.9% 250 ML IV ONE (18:31)
[2022-10-22 19:16] LABS: GLUCOMETER DEV NAME(LOC) 6N.1; GLUCOSE,POINT OF CARE 95 MG/DL (70-110)
[2022-10-22] MEDS: ATORVASTATIN CALCIUM 40 MG TABLET PO SCH (20:37)
[2022-10-23 05:01] VITALS: BP 108/62
[2022-10-23 05:31] LABS: GLUCOMETER DEV NAME(LOC) 6N.2B; GLUCOSE,POINT OF CARE 98 MG/DL (70-110)
[2022-10-23 06:30] LABS: BASOPHILS % (AUTO) 1.1 % (0.0-2.0); EOSINOPHILS % (AUTO) 5.5 % (1.0-6.0); HEMATOCRIT 30.4 % (36-46); HEMOGLOBIN 10.1 g/dL (12.0-16.0); LYMPHOCYTES # (AUTO) 1.8 K/uL (1.0-4.8); MEAN CORPUSCULAR HEMOGLOBIN 29.5 pg (26.0-34.0); MEAN CORPUSCULAR HGB CONC 33.3 G/dL (31.0-37.0); MEAN CORPUSCULAR VOLUME 89 fL (80-100); MONOCYTES # (AUTO) 0.4 K/uL (0.1-1.0); MONOCYTES % (AUTO) 8.2 % (2.0-9.0); NEUTROPHILS # (AUTO) 2.6 K/uL (1.8-7.7); NEUTROPHILS % (AUTO) 51.2 % (40.0-70.0); PLATELET COUNT (AUTO) 219 K/uL (150-450); RED BLOOD CELL COUNT(AUTO) 3.43 MIL/uL (4.00-5.20); RED CELL DISTRIBUTION WIDTH 13.3 % (11.5-14.5)
[2022-10-23 06:32] LABS: ALBUMIN 3.4 g/dL (3.4-5.0); BILIRUBIN,TOTAL 0.2 mg/dL (0.1-1.0); CALCIUM, TOTAL 9.4 mg/dL (8.8-10.5); CREATININE 2.29 mg/dL (0.60-1.30)
[2022-10-23 06:41] LABS: GLUCOMETER DEV NAME(LOC) 6N.1; GLUCOSE,POINT OF CARE 78 MG/DL (70-110)
[2022-10-23 08:26] VITALS: BP 135/73
[2022-10-23] MEDS: QUEtiapine FUMARATE 25 MG TABLET PO SCH ×2 (09:32→19:58)
[2022-10-23] MEDS: PARoxetine HCL 20 MG TABLET PO SCH (09:32)
[2022-10-23] MEDS: ASPIRIN 81 MG DR TABLET PO SCH (09:32)
[2022-10-23] MEDS: GABAPENTIN 100 MG CAPSULE PO SCH ×3 (09:32→19:58)
[2022-10-23] MEDS: DOCUSATE SODIUM 100 MG CAPSULE PO SCH ×2 (09:33→19:58)
[2022-10-23] MEDS: HEPARIN SODIUM,PORCINE 5,000 UNITS/ML VIAL SQ SCH ×2 (09:33→16:51)
[2022-10-23] MEDS: PANTOPRAZOLE SODIUM 40 MG/VIAL IVP SCH (09:33)
[2022-10-23] MEDS ORDERED: SODIUM CHLORIDE 0.9% 1,000 ML IV ONE (11:00)
[2022-10-23 15:49] VITALS: BP 141/67
[2022-10-23] MEDS: LEVOFLOXACIN 500 MG/D5% WATER 100 ML IV SCH (16:51)
[2022-10-23 19:06] LABS: GLUCOMETER DEV NAME(LOC) 6N.2B; GLUCOSE,POINT OF CARE 100 MG/DL (70-110)
[2022-10-23 19:06] LABS: GLUCOMETER DEV NAME(LOC) 6N.2B; GLUCOSE,POINT OF CARE 101 MG/DL (70-110)
[2022-10-23 19:47] VITALS: BP 131/60
[2022-10-23] MEDS: ATORVASTATIN CALCIUM 40 MG TABLET PO SCH (19:58)
[2022-10-23] MEDS: ACETAMINOPHEN 325 MG TABLET PO PRN (19:58)
[2022-10-23] MEDS: INSULIN LISPRO 100 UNITS/ML SQ PRN (19:59)
[2022-10-24] MEDS: HEPARIN SODIUM,PORCINE 5,000 UNITS/ML VIAL SQ SCH ×4 (00:02→23:41)
[2022-10-24 03:41] LABS: GLUCOMETER DEV NAME(LOC) 6N.1; GLUCOSE,POINT OF CARE 151 MG/DL (70-110)
[2022-10-24 04:15] VITALS: BP 129/55
[2022-10-24 05:59] LABS: BASOPHILS % (AUTO) 0.8 % (0.0-2.0); EOSINOPHILS % (AUTO) 5.9 % (1.0-6.0); HEMATOCRIT 26.8 % (36-46); LYMPHOCYTES # (AUTO) 1.3 K/uL (1.0-4.8); LYMPHOCYTES % (AUTO) 29.1 % (22.0-44.0); MEAN CORPUSCULAR HEMOGLOBIN 29.4 pg (26.0-34.0); MEAN CORPUSCULAR HGB CONC 33.5 G/dL (31.0-37.0); MEAN CORPUSCULAR VOLUME 88 fL (80-100); MONOCYTES # (AUTO) 0.4 K/uL (0.1-1.0); NEUTROPHILS # (AUTO) 2.5 K/uL (1.8-7.7); NEUTROPHILS % (AUTO) 56.2 % (40.0-70.0); PLATELET COUNT (AUTO) 198 K/uL (150-450); RED BLOOD CELL COUNT(AUTO) 3.05 MIL/uL (4.00-5.20); RED CELL DISTRIBUTION WIDTH 13.8 % (11.5-14.5)
[2022-10-24 06:19] LABS: ALBUMIN 2.9 g/dL (3.4-5.0); BILIRUBIN,TOTAL 0.2 mg/dL (0.1-1.0); CALCIUM, TOTAL 9.1 mg/dL (8.8-10.5); CREATININE 2.05 mg/dL (0.60-1.30); POTASSIUM 4.8 mmol/L (3.5-5.1)
[2022-10-24 07:34] VITALS: BP 117/61
[2022-10-24] MEDS: ASPIRIN 81 MG DR TABLET PO SCH (08:01)
[2022-10-24] MEDS: GABAPENTIN 100 MG CAPSULE PO SCH ×3 (08:01→20:35)
[2022-10-24] MEDS: PANTOPRAZOLE SODIUM 40 MG/VIAL IVP SCH (08:02)
[2022-10-24] MEDS: DOCUSATE SODIUM 100 MG CAPSULE PO SCH ×2 (08:02→20:35)
[2022-10-24] MEDS: ACETAMINOPHEN 325 MG TABLET PO PRN ×3 (09:46→20:36)
[2022-10-24] MEDS: QUEtiapine FUMARATE 25 MG TABLET PO SCH ×2 (10:15→20:36)
[2022-10-24] MEDS: PARoxetine HCL 20 MG TABLET PO SCH (11:54)
[2022-10-24 13:16] LABS: GLUCOMETER DEV NAME(LOC) 6N.1; GLUCOSE,POINT OF CARE 81 MG/DL (70-110)
[2022-10-24 13:16] LABS: GLUCOMETER DEV NAME(LOC) 6N.1; GLUCOSE,POINT OF CARE 135 MG/DL (70-110)
[2022-10-24 15:41] VITALS: BP 147/65
[2022-10-24] MEDS: LEVOFLOXACIN 250 MG/D5% WATER 50 ML IV SCH (16:45)
[2022-10-24 20:15] LABS: GLUCOMETER DEV NAME(LOC) 6N.2B; GLUCOSE,POINT OF CARE 86 MG/DL (70-110)
[2022-10-24] MEDS: ATORVASTATIN CALCIUM 40 MG TABLET PO SCH (20:35)
[2022-10-24 20:36] VITALS: BP 129/59
[2022-10-24] MEDS: INSULIN LISPRO 100 UNITS/ML SQ PRN (20:50)
[2022-10-25 04:41] VITALS: BP 109/56
[2022-10-25] MEDS: ACETAMINOPHEN 325 MG TABLET PO PRN ×2 (04:41→22:48)
[2022-10-25 06:29] LABS: BASOPHILS % (AUTO) 0.9 % (0.0-2.0); EOSINOPHILS % (AUTO) 4.1 % (1.0-6.0); HEMATOCRIT 27.9 % (36-46); HEMOGLOBIN 9.2 g/dL (12.0-16.0); LYMPHOCYTES # (AUTO) 1.3 K/uL (1.0-4.8); LYMPHOCYTES % (AUTO) 28.1 % (22.0-44.0); MEAN CORPUSCULAR HEMOGLOBIN 29.3 pg (26.0-34.0); MEAN CORPUSCULAR HGB CONC 33.1 G/dL (31.0-37.0); MEAN CORPUSCULAR VOLUME 88 fL (80-100); MONOCYTES # (AUTO) 0.5 K/uL (0.1-1.0); MONOCYTES % (AUTO) 11.1 % (2.0-9.0); NEUTROPHILS # (AUTO) 2.7 K/uL (1.8-7.7); NEUTROPHILS % (AUTO) 55.8 % (40.0-70.0); PLATELET COUNT (AUTO) 205 K/uL (150-450); RED BLOOD CELL COUNT(AUTO) 3.15 MIL/uL (4.00-5.20); RED CELL DISTRIBUTION WIDTH 13.5 % (11.5-14.5)
[2022-10-25 06:54] LABS: BILIRUBIN,TOTAL 0.3 mg/dL (0.1-1.0); CREATININE 2.21 mg/dL (0.60-1.30); POTASSIUM 5.2 mmol/L (3.5-5.1); TOTAL PROTEIN, SERUM 7.2 g/dL (6.4-8.2)
[2022-10-25 07:35] VITALS: BP 128/75
[2022-10-25 07:36] LABS: GLUCOMETER DEV NAME(LOC) 6N.2B; GLUCOSE,POINT OF CARE 180 MG/DL (70-110)
[2022-10-25 07:37] LABS: GLUCOMETER DEV NAME(LOC) 6N.1; GLUCOSE,POINT OF CARE 96 MG/DL (70-110)
[2022-10-25] MEDS: HEPARIN SODIUM,PORCINE 5,000 UNITS/ML VIAL SQ SCH ×3 (08:00→23:49)
[2022-10-25] MEDS: QUEtiapine FUMARATE 25 MG TABLET PO SCH ×2 (08:33→20:27)
[2022-10-25] MEDS: GABAPENTIN 100 MG CAPSULE PO SCH ×3 (08:33→20:27)
[2022-10-25] MEDS: DOCUSATE SODIUM 100 MG CAPSULE PO SCH ×2 (08:33→20:27)
[2022-10-25] MEDS: PARoxetine HCL 20 MG TABLET PO SCH (08:33)
[2022-10-25] MEDS: PANTOPRAZOLE SODIUM 40 MG/VIAL IVP SCH (08:33)
[2022-10-25] MEDS: ASPIRIN 81 MG DR TABLET PO SCH (08:33)
[2022-10-25 13:21] LABS: GLUCOMETER DEV NAME(LOC) 6N.2B; GLUCOSE,POINT OF CARE 107 MG/DL (70-110)
[2022-10-25] MEDS ORDERED: DOCU-385 PO (14:23)
[2022-10-25] MEDS ORDERED: BISA10SU11 PR (14:29)
[2022-10-25] MEDS ORDERED: MAGN-169 PO (14:30)
[2022-10-25 15:45] VITALS: BP 120/58
[2022-10-25] MEDS: LEVOFLOXACIN 250 MG/D5% WATER 50 ML IV SCH (16:27)
[2022-10-25] MEDS: INSULIN LISPRO 100 UNITS/ML SQ PRN (17:33)
[2022-10-25 18:21] LABS: GLUCOMETER DEV NAME(LOC) 6N.2B; GLUCOSE,POINT OF CARE 193 MG/DL (70-110)
[2022-10-25 19:58] VITALS: BP 130/53
[2022-10-25] MEDS: ATORVASTATIN CALCIUM 40 MG TABLET PO SCH (20:27)
[2022-10-25 23:36] LABS: GLUCOMETER DEV NAME(LOC) 6N.2B; GLUCOSE,POINT OF CARE 114 MG/DL (70-110)
[2022-10-26] MEDS: ACETAMINOPHEN 325 MG TABLET PO PRN (03:17)
[2022-10-26 05:49] VITALS: BP 140/66
[2022-10-26 06:51] LABS: GLUCOMETER DEV NAME(LOC) 6N.2B; GLUCOSE,POINT OF CARE 93 MG/DL (70-110)
[2022-10-26 07:29] LABS: CREATININE 2.23 mg/dL (0.60-1.30); POTASSIUM 4.8 mmol/L (3.5-5.1)
[2022-10-26 07:48] VITALS: BP 119/59
[2022-10-26] MEDS: HEPARIN SODIUM,PORCINE 5,000 UNITS/ML VIAL SQ SCH (08:00)
[2022-10-26] MEDS: PARoxetine HCL 20 MG TABLET PO SCH (08:34)
[2022-10-26] MEDS: ASPIRIN 81 MG DR TABLET PO SCH (08:34)
[2022-10-26] MEDS: GABAPENTIN 100 MG CAPSULE PO SCH (08:34)
[2022-10-26] MEDS: PANTOPRAZOLE SODIUM 40 MG/VIAL IVP SCH (08:35)
[2022-10-26] MEDS: DOCUSATE SODIUM 100 MG CAPSULE PO SCH (08:35)
[2022-10-26] MEDS: QUEtiapine FUMARATE 25 MG TABLET PO SCH (08:37)
[2022-10-26] MEDS: MAGNESIUM HYDROXIDE SUSPENSION 30 ML UDCUP PO PRN (08:38)
[2022-10-26 19:56] LABS: GLUCOMETER DEV NAME(LOC) 6N.2B; GLUCOSE,POINT OF CARE 83 MG/DL (70-110)
== END 2022-10-26 14:45 | DRG 682 ==
LOC: EMS 09:09 → 5S 18:55 → EMS 20:57 → 6S 10-18 22:30
PROVIDERS: ADMIT Hospitalist; ATTEND Hospitalist
DX: N17.0 Acute kidney failure with tubular necrosis (principal); U07.1 COVID-19; N39.0 Urinary tract infection, site not specified; I13.0 Hypertensive heart and chronic kidney disease with heart failure and stage 1 through stage 4 chronic kidney disease, or unspecified chronic kidney disease; E44.0 Moderate protein-calorie malnutrition; Z16.24 Resistance to multiple antibiotics; K59.00 Constipation, unspecified; N13.9 Obstructive and reflux uropathy, unspecified; E78.5 Hyperlipidemia, unspecified; I50.9 Heart failure, unspecified; E87.5 Hyperkalemia; D64.9 Anemia, unspecified; M85.80 Other specified disorders of bone density and structure, unspecified site; M51.36 Other intervertebral disc degeneration, lumbar region; M47.819 Spondylosis without myelopathy or radiculopathy, site unspecified; M46.1 Sacroiliitis, not elsewhere classified; J42 Unspecified chronic bronchitis; N18.9 Chronic kidney disease, unspecified; E11.22 Type 2 diabetes mellitus with diabetic chronic kidney disease; Z79.899 Other long term (current) drug therapy; Z79.84 Long term (current) use of oral hypoglycemic drugs; Z79.82 Long term (current) use of aspirin; Z88.5 Allergy status to narcotic agent; Z98.51 Tubal ligation status; Z68.30 Body mass index [BMI] 30.0-30.9, adult
CPT/HCPCS: 74176; 76770; 80048; 80053; 81001; 82962; 83690; 83735; 84100; 85025; 87086; 87186; 93005; 97116; 97163; 97166; 97530; 97535; 99291; C9113; J0696; J1610; J1644; J1956; J3475; J3535; J7030; J7050